=== PATIENT | female | born 1935 | race Caucasian/White ===

== ENCOUNTER 2024-04-01 13:45 | Outpatient (CLI) | payer MEDICARE | END 2024-04-01 13:46 | disposition home or self-care (01) | LOC: BICCT 13:45 | PROVIDERS: ATTEND Orthopaedic Surgery | DX: M17.11 Unilateral primary osteoarthritis, right knee (principal); M85.80 Other specified disorders of bone density and structure, unspecified site; Z96.641 Presence of right artificial hip joint ==

== ENCOUNTER 2024-04-04 11:15 | Outpatient (CLI) | payer MEDICARE | END 2024-04-04 11:16 | disposition home or self-care (01) | LOC: LABBT 11:15 | PROVIDERS: ATTEND Orthopaedic Surgery | DX: Z01.818 Encounter for other preprocedural examination (principal); M17.11 Unilateral primary osteoarthritis, right knee; I51.7 Cardiomegaly | CPT/HCPCS: 71046; 80048; 81003; 85025; 85610; 87081; 93005; 93010 ==